=== PATIENT | female | born 1965 | race African-American/Black ===

== ENCOUNTER 2023-02-13 19:48 | Emergency (ER) | payer OTHER ==
[2023-02-13 20:23] VITALS: BP 95/62; BMI 16.4
[2023-02-13] MEDS ORDERED: AMOX TR/POT CLAV 875MG/125MG TABLETS (FP) PO ONE ×2 (21:30)
[2023-02-13] MEDS ORDERED: AMOX TR/POT CLAV 875MG/125MG TABLETS (FP) ONE (22:43)
[2023-02-14 05:12] VITALS: PULSE 61; RESP 17; TEMP 97.1
== END 2023-02-14 05:58 | disposition home or self-care (01) ==
LOC: JER 19:48
DX: R42 Dizziness and giddiness (principal); R53.1 Weakness; R26.2 Difficulty in walking, not elsewhere classified
CPT/HCPCS: 70450-TC; 93005; 93010; 99284-25